=== PATIENT | male | born 1950 | race Caucasian/White ===

== ENCOUNTER 2019-04-14 15:15 | Outpatient (REF) | payer MEDICARE, MEDICAID, SELFPAY ==
[2019-04-14 19:36] LABS: Anion Gap 9.4 mmol/L (3-11); BUN 17 mg/dL (7-18); CO2 27.6 mmol/L (21.0-32.0); CREATININE 0.78 mg/dL (0.70-1.30); Calcium 9.1 mg/dL (8.5-10.1); Chloride 102 mmol/L (98-107); Cholesterol 206 mg/dL (50-200); Glucose 77 mg/dL (70-100); HDL Cholesterol 57 mg/dL (40-60); LDL CHOLESTEROL 136 mg/dL (<100); Potassium 4.1 mmol/L (3.5-5.1); Sodium 139 mmol/L (136-145); Triglyceride 62 mg/dL (30-150)
== END 2019-04-14 15:35 ==
LOC: NCHCN 15:15
PROVIDERS: PCP Internal Medicine; Visit Provider Physician Assistant Medical
DX: I10 Essential (primary) hypertension (principal)
CPT/HCPCS: 80048; 80061; 83721

== ENCOUNTER 2020-10-11 18:22 | Outpatient (REF) | payer MEDICARE, MEDICAID, SELFPAY | END 2020-10-11 18:42 | LOC: NCHCN 18:22 | PROVIDERS: PCP Internal Medicine; Visit Provider Physician Assistant | DX: R30.0 Dysuria (principal) | CPT/HCPCS: 87086 ==

== ENCOUNTER 2020-11-01 16:36 | Outpatient (REF) | payer MEDICARE, MEDICAID, SELFPAY ==
[2020-11-01 19:27] LABS: ALT 24 U/L (16-63); AST 17 U/L (15-37); Albumin 3.8 g/dL (3.4-5.0); Alkaline Phosphatase 69 U/L (46-116); Anion Gap 6.4 mmol/L (3-11); BUN 19 mg/dL (7-18); Bilirubin, Total 0.9 mg/dL (0.2-1.0); CO2 27.6 mmol/L (21.0-32.0); CREATININE 1.12 mg/dL (0.70-1.30); Calcium 8.9 mg/dL (8.5-10.1); Chloride 105 mmol/L (98-107); Glucose 129 mg/dL (74-106); Potassium 4.2 mmol/L (3.5-5.1); Sodium 139 mmol/L (136-145); Total Protein 6.9 g/dL (6.4-8.2)
[2020-11-01 19:30] LABS: Abs Immature Grans 0.01 10^3/uL (0.0-0.06); Absolute Basophil Count 0.02 10^3/uL (0.0-0.2); Absolute Eosinophil Count 0.23 10^3/uL (0.0-0.7); Absolute Lymphocyte Count 1.68 10^3/uL (1.2-3.4); Absolute Monocyte Count 0.45 10^3/uL (0.1-0.8); Basophils % 0.3; Eosinophils % 3.3; HGB 15.9 g/dL (13.5-17.5); Immature Grans % 0.1; Lymphocytes % 24.4; MCH 29.8 pg (27.0-33.0); MCHC 33.1 % (32.0-36.0); MCV 90.1 fL (80-95); MPV 9.4 fL (8.0-11.0); Monocytes % 6.5; Neutrophils % 65.4; Nucleated RBC 0 %; Platelet Count 234 10^3/uL (130-400); RBC 5.33 10^6/uL (4.36-5.78); RDW-SD 42.7 fL; WBC 6.89 10^3/uL (4.4-10.8)
== END 2020-11-01 16:56 ==
LOC: NCHCN 16:36
PROVIDERS: PCP Internal Medicine; Visit Provider Physician Assistant
DX: R93.421 Abnormal radiologic findings on diagnostic imaging of right kidney (principal); R31.9 Hematuria, unspecified
CPT/HCPCS: 80053; 85025

== ENCOUNTER 2020-12-08 12:15 | Outpatient (REF) | payer MEDICARE, MEDICAID, SELFPAY ==
[2020-12-08 16:22] LABS: Bacteria Negative HPF (Negative); C & S Indicated? No; Crystals Negative HPF (Negative); Epithelial Cells Negative HPF (Negative); Mucus Moderate (Negative); RBC 0-2 HPF (0-2); WBC Negative HPF (0-5)
== END 2020-12-08 12:35 ==
LOC: NCHCN 12:15
PROVIDERS: PCP Internal Medicine; Visit Provider Physician Assistant
DX: R31.9 Hematuria, unspecified (principal)
CPT/HCPCS: 81015

== ENCOUNTER 2021-09-11 18:40 | Outpatient (REF) | payer MEDICARE, MEDICAID, SELFPAY | END 2021-09-11 18:41 | disposition home or self-care (01) | LOC: NCHCN 18:40 | PROVIDERS: PCP Internal Medicine; Visit Provider Internal Medicine | DX: N39.0 Urinary tract infection, site not specified (principal); R30.0 Dysuria | CPT/HCPCS: 87077; 87086; 87186 ==

== ENCOUNTER 2022-01-05 15:15 | Outpatient (REF) | payer MEDICARE, MEDICAID, SELFPAY ==
[2022-01-05 19:35] LABS: Anion Gap 8.7 mmol/L (3-11); BUN 20 mg/dL (7-18); CO2 27.3 mmol/L (21.0-32.0); CREATININE 0.9 mg/dL (0.70-1.30); Calcium 8.8 mg/dL (8.5-10.1); Calculated LDL 139 mg/dL (<100); Chloride 103 mmol/L (98-107); Cholesterol 205 mg/dL (<200); Glucose 77 mg/dL (74-106); HDL Cholesterol 53 mg/dL (40-60); Potassium 4.3 mmol/L (3.5-5.1); Sodium 139 mmol/L (136-145); Triglyceride 65 mg/dL (<150)
[2022-01-08 09:59] LABS: PSA, Diagnostic 7.7 ng/mL (0.0-6.5)
== END 2022-01-05 15:16 | disposition home or self-care (01) ==
LOC: NCHCN 15:15
PROVIDERS: PCP Internal Medicine; Visit Provider Physician Assistant
DX: I10 Essential (primary) hypertension (principal); R35.1 Nocturia; N50.89 Other specified disorders of the male genital organs
CPT/HCPCS: 80048; 80061; 84153

== ENCOUNTER → 2022-02-14 12:54 | Outpatient (BNVA) | payer MEDICARE, MEDICAID, SELFPAY | PROVIDERS: PCP Internal Medicine; Referring Provider Internal Medicine; Visit Provider Nurse Practitioner Gerontology | DX: N40.1 Benign prostatic hyperplasia with lower urinary tract symptoms (principal); R35.1 Nocturia; N43.3 Hydrocele, unspecified; N52.9 Male erectile dysfunction, unspecified; R97.20 Elevated prostate specific antigen [PSA] | CPT/HCPCS: 99205 ==

== ENCOUNTER 2022-03-09 17:53 | Outpatient (REF) | payer MEDICARE, MEDICAID, SELFPAY | END 2022-03-09 17:54 | disposition home or self-care (01) | LOC: NCHCN 17:53 | PROVIDERS: PCP Internal Medicine; Visit Provider Physician Assistant | DX: R30.0 Dysuria (principal) | CPT/HCPCS: 87086 ==

== ENCOUNTER 2022-05-10 02:20 | Outpatient (CLI) | payer MEDICARE, MEDICAID, SELFPAY ==
[2022-05-10 22:59] LABS: PSA, Diagnostic 10.4 ng/mL (<=6.5)
== END 2022-05-10 02:21 | disposition home or self-care (01) ==
LOC: LBO 02:20
PROVIDERS: PCP Internal Medicine; Visit Provider Nurse Practitioner Gerontology
DX: R97.20 Elevated prostate specific antigen [PSA] (principal); N43.3 Hydrocele, unspecified; N52.9 Male erectile dysfunction, unspecified
CPT/HCPCS: 36415; 84153

== ENCOUNTER → 2022-05-17 15:43 | Outpatient (BNVA) | payer MEDICARE, MEDICAID, SELFPAY | PROVIDERS: PCP Internal Medicine; Referring Provider Internal Medicine; Visit Provider Nurse Practitioner Gerontology | DX: N40.1 Benign prostatic hyperplasia with lower urinary tract symptoms (principal); R35.1 Nocturia; R97.20 Elevated prostate specific antigen [PSA] | CPT/HCPCS: 99215 ==

== ENCOUNTER 2022-06-07 04:14 | Outpatient (CLI) | payer MEDICARE, MEDICAID, SELFPAY ==
[2022-06-07 10:25] LABS: CREATININE 0.9 mg/dL (0.70-1.30)
== END 2022-06-07 04:15 | disposition home or self-care (01) ==
LOC: LBO 04:14
PROVIDERS: PCP Internal Medicine; Visit Provider Nurse Practitioner Gerontology
DX: R97.20 Elevated prostate specific antigen [PSA] (principal)
CPT/HCPCS: 36415; 82565

== ENCOUNTER → 2022-07-27 10:55 | Outpatient (BNVA) | payer MEDICARE, MEDICAID, SELFPAY | PROVIDERS: PCP Internal Medicine; Referring Provider Internal Medicine; Visit Provider Urology | DX: N50.89 Other specified disorders of the male genital organs (principal); R97.20 Elevated prostate specific antigen [PSA] | CPT/HCPCS: 99214 ==

== ENCOUNTER 2023-01-10 14:53 | Outpatient (REF) | payer MEDICARE, MEDICAID, SELFPAY | END 2023-01-10 14:54 | disposition home or self-care (01) | LOC: LBN 14:53 | PROVIDERS: PCP Internal Medicine; Visit Provider Urology | DX: R97.20 Elevated prostate specific antigen [PSA] (principal) | CPT/HCPCS: 84153 ==

== ENCOUNTER → 2023-01-14 09:55 | Outpatient (BNVA) | payer MEDICARE, MEDICAID, SELFPAY | PROVIDERS: PCP Internal Medicine; Referring Provider Internal Medicine; Visit Provider Nurse Practitioner Gerontology | DX: R97.20 Elevated prostate specific antigen [PSA] (principal) | CPT/HCPCS: 99214 ==

== ENCOUNTER 2023-07-11 18:55 | Outpatient (REF) | payer MEDICARE, MEDICAID, SELFPAY ==
[2023-07-11 19:06] LABS: Bilirubin Negative (Negative); Blood Negative (Negative); Clarity Turbid (Clear); Glucose Negative (Negative); Ketones Negative (Negative); Leukocyte Esterase Negative (Negative); Nitrite Positive (Negative); Specific Gravity >= 1.030 (1.005-1.025); Urobilinogen 0.2 mg/dL (Up to 0.2)
[2023-07-11 20:07] LABS: Bacteria Moderate HPF (Negative); C & S Indicated? Yes; Crystals Mod Calcium Oxalate HPF (Negative); Epithelial Cells Rare HPF (Negative); Mucus Moderate (Negative); RBC Negative HPF (0-2)
[2023-07-12 19:59] LABS: PSA, Diagnostic 9.3 ng/mL (<=6.5)
== END 2023-07-11 18:56 | disposition home or self-care (01) ==
LOC: NCHCN 18:55
PROVIDERS: PCP Internal Medicine; Visit Provider Nurse Practitioner Family
DX: R97.20 Elevated prostate specific antigen [PSA] (principal); R82.998 Other abnormal findings in urine; N39.0 Urinary tract infection, site not specified
CPT/HCPCS: 87077; 81003; 81015; 84153; 87086; 87186

== ENCOUNTER → 2023-07-18 09:56 | Outpatient (BNVA) | payer MEDICARE, MEDICAID, SELFPAY | PROVIDERS: PCP Internal Medicine; Referring Provider Internal Medicine; Visit Provider Nurse Practitioner Gerontology | DX: R97.20 Elevated prostate specific antigen [PSA] (principal); N43.3 Hydrocele, unspecified | CPT/HCPCS: 99213 ==

== ENCOUNTER 2023-12-09 11:32 | Outpatient (REF) | payer MEDICARE, MEDICAID, SELFPAY | END 2023-12-09 11:33 | disposition home or self-care (01) | LOC: NCHCN 11:32 | PROVIDERS: PCP Internal Medicine; Visit Provider Nurse Practitioner Family | DX: R30.0 Dysuria (principal) | CPT/HCPCS: 87077; 87086; 87186 ==

== ENCOUNTER 2024-01-07 11:19 | Outpatient (REF) | payer MEDICARE, MEDICAID, SELFPAY ==
[2024-01-10 15:26] LABS: Free PSA/PSA Ratio 0.19 ratio
== END 2024-01-07 11:20 | disposition home or self-care (01) ==
LOC: NCHCN 11:19
PROVIDERS: PCP Internal Medicine; Visit Provider Physician Assistant
DX: R97.20 Elevated prostate specific antigen [PSA] (principal)
CPT/HCPCS: 84154

== ENCOUNTER → 2024-01-16 09:59 | Outpatient (BNVA) | payer MEDICARE, MEDICAID, SELFPAY | PROVIDERS: PCP Internal Medicine; Referring Provider Internal Medicine; Visit Provider Nurse Practitioner Gerontology | DX: N43.3 Hydrocele, unspecified (principal); R97.20 Elevated prostate specific antigen [PSA] | CPT/HCPCS: 99214 ==

== ENCOUNTER 2024-07-08 18:21 | Outpatient (REF) | payer MEDICARE, MEDICAID, SELFPAY ==
[2024-07-09 21:42] LABS: PSA, Diagnostic 6.6 ng/mL (<=6.5)
== END 2024-07-08 18:22 | disposition home or self-care (01) ==
LOC: NCHCN 18:21
PROVIDERS: PCP Internal Medicine; Visit Provider Physician Assistant
DX: R97.20 Elevated prostate specific antigen [PSA] (principal)
CPT/HCPCS: 84153

== ENCOUNTER → 2024-07-16 10:03 | Outpatient (BNVA) | payer MEDICARE, MEDICAID, SELFPAY | PROVIDERS: PCP Internal Medicine; Referring Provider Internal Medicine; Visit Provider Nurse Practitioner Gerontology | DX: N43.3 Hydrocele, unspecified (principal); R97.20 Elevated prostate specific antigen [PSA] | CPT/HCPCS: 99214 ==

== ENCOUNTER 2025-01-06 20:47 | Outpatient (REF) | payer MEDICARE, MEDICAID, SELFPAY ==
[2025-01-06 20:07] LABS: Anion Gap 3.4 mmol/L (3-11); BUN 26 mg/dL (7-18); CO2 31.6 mmol/L (21.0-32.0); CREATININE 1.1 mg/dL (0.70-1.30); Calcium 9.3 mg/dL (8.5-10.1); Calculated LDL 133 mg/dL (<100); Chloride 103 mmol/L (98-107); Cholesterol 216 mg/dL (<200); Estimated GFR 70.44 (mL/min/1.73m2); Glucose 100 mg/dL (74-106); HDL Cholesterol 47 mg/dL (40-60); Potassium 4.3 mmol/L (3.5-5.1); Sodium 138 mmol/L (136-145); Triglyceride 181 mg/dL (<150)
[2025-01-07 23:01] LABS: PSA, Diagnostic 8.4 ng/mL (<=6.5)
== END 2025-01-06 20:48 | disposition home or self-care (01) ==
LOC: NCHCN 20:47
PROVIDERS: Nurse Practitioner Gerontology; PCP Internal Medicine; Visit Provider Internal Medicine
DX: R97.20 Elevated prostate specific antigen [PSA] (principal); I10 Essential (primary) hypertension
CPT/HCPCS: 80048; 80061; 84153

== ENCOUNTER → 2025-01-12 08:27 | Outpatient (BNVA) | payer MEDICARE, MEDICAID, SELFPAY | PROVIDERS: PCP Internal Medicine; Referring Provider Internal Medicine; Visit Provider Nurse Practitioner Gerontology | DX: N43.3 Hydrocele, unspecified (principal); R97.20 Elevated prostate specific antigen [PSA] | CPT/HCPCS: 99214 ==

== ENCOUNTER 2025-03-09 14:39 | Outpatient (REF) | payer MEDICARE, MEDICAID, SELFPAY ==
[2025-03-09 20:01] LABS: Bilirubin Negative (Negative); Blood Trace-intact (Negative); Clarity Clear (Clear); Glucose Negative (Negative); Ketones Negative (Negative); Leukocyte Esterase Negative (Negative); Nitrite Negative (Negative); Specific Gravity 1.015 (1.005-1.025); Urobilinogen 0.2 mg/dL (Up to 0.2); pH 8.5 (5-8)
[2025-03-09 20:24] LABS: Bacteria Few HPF (Negative); C & S Indicated? No/Sq. Contamination; Casts Negative LPF (Negative); Crystals Negative HPF (Negative); Epithelial Cells Moderate HPF (Negative); Mucus Negative (Negative)
== END 2025-03-09 14:40 | disposition home or self-care (01) ==
LOC: NCHCN 14:39
PROVIDERS: PCP Internal Medicine; Visit Provider Nurse Practitioner Family
DX: R30.0 Dysuria (principal); B96.29 Other Escherichia coli [E. coli] as the cause of diseases classified elsewhere
CPT/HCPCS: 81003; 81015

== ENCOUNTER 2025-03-25 06:05 | Day surgery (SDC) | payer MEDICARE, MEDICAID, SELFPAY ==
[2025-03-25] VITALS (24 sets, daily range): BP systolic 104–169; BP diastolic 61–104; PULSE 55–80; RESP 12–27; TEMP 36–37; O2SAT 90–97; BMI 34.4
--- NOTE | 2025-03-25 06:43 | W.PM.HP.N ---
Date of service: 03/25/25 Time of Service: 06:43 Assessment and Plan Assessment and plan (1) Hydrocele: Status: Acute Assessment and plan: Since only the left side is symptomatic, I will do the left hydrocelectomy. I will also attempt to release the adhesion at the base of his penis. History of Present Illness History of Present Illness Chief Complaint: Bilateral hydroceles Narrative: This is a 74-year-old gentleman who has a history of an elevated PSA. His multiparameter prostate MRI showed very low likelihood of clinically significant prostate cancer, so he has never had a prostate biopsy. He does have a finding of bilateral hydroceles (left larger than the right) the hydroceles have become more bothersome over the years and he presents now for hydrocelectomy. He tells me that only the left side is symptomatic so we will not perform bilateral hydrocelectomy but just left hydrocelectomy. He does have a skin lesion at the base of the penis that causes some tethering when he gets an erection. He is wondering if this area can be excised/revised as well. Review of Systems Narrative: No fevers or chills No vision change or dysphasia No diabetes or thyroid dysfunction No shortness of breath, cough or hemoptysis No chest pain or palpitations No nausea, vomiting, hepatitis, ulcers, jaundice No seizures, strokes or peripheral neuropathy No bleeding disorders or anemia No gout PFSH All Active Problems Hydrocele (Acute) Erectile dysfunction (Acute) Elevated PSA (Acute) Medical History Hx MRSA infection Surgical History Hx of hand surgery Hx of hernia repair Social History Smoking/Tobacco Use Status: Never Smoking risk assessment performed?: Yes Alcohol Intake: current Alcohol Intake frequency: a few times a month Alcohol type: beer Drug use: Never Substance use type: does not use Housing: house Additional Social history: [facility] Meds Allergies and Home Medications Allergies Allergy/AdvReac Type Severity Reaction Status Date / Time sildenafil (From Viagra) Allergy floaters Verified 03/25/25 06:32 Home Medications ?Medication ?Instructions ?Recorded ?Confirmed ?Type torsemide 5 mg tablet 5 mg PO DAILY 01/12/25 03/23/25 History Exam Const General: cooperative Neck Neck: supple Resp Effort & Inspection: normal respiratory effort Auscultation: clear to auscultation bilaterally Cardio Rate: regular rate Rhythm: regular rhythm GI Palpation: soft Neuro General: patient alert, patient awake and patient oriented x3 Extrem General: other (Right hand injury) Results Last Vital Signs Temp 37.0 C 03/25/25 06:26 Pulse 56 L 03/25/25 06:26 Resp 17 03/25/25 06:26 BP 169/104 H 03/25/25 06:26 Pulse Ox 95 03/25/25 06:26 Time Spent Time spent with Patient: <40 minutes Time was spent: other
[2025-03-25] MEDS: Lactated Ringers 1,000 ML 80 ML IV (06:44)
--- NOTE | 2025-03-25 07:18 | W.ANESPRE ---
General Info Date of Service Date Performed: 03/25/25 Height: 5 ft 4 in Weight: 91.2 kg Body Mass Index (BMI): 34.4 Surgical Procedure: Operation Date: 03/25/25 07:40 Proposed Procedure Side Surgeon p Hydrocelectomy Bilateral Suleiman Balbuena MD Actual Procedure Side Surgeon p Hydrocelectomy Bilateral Suleiman Balbuena MD Pre-Op Diagnosis Post-Op Diagnosis Hydrocele Meds Allergies and Home Medications Allergies Allergy/AdvReac Type Severity Reaction Status Date / Time sildenafil (From Viagra) Allergy floaters Verified 03/25/25 06:32 Home Medication ?Medication ?Instructions ?Recorded torsemide 5 mg tablet 5 mg PO DAILY 01/12/25 Current Visit Medications: Current Medications Generic Name Dose Route Start Last Admin Trade Name Freq PRN Reason Stop Dose Admin Ringer's Solution 1,000 mls @ 80 mls/hr 03/25/25 06:00 03/25/25 06:44 IV 03/25/25 23:59 80 mls/hr INFUSION BETH Administration Cefazolin Sodium/Dextrose 2 gm in 50 mls @ 100 mls/hr 03/25/25 06:00 Ancef Duplex IVPB 03/25/25 23:59 PREOP BETH IV Miscellaneous Supplies 1 each 03/25/25 06:00 Iv Access IV 03/25/25 23:59 DIRECTED BETH Sodium Chloride 0 ml 03/25/25 06:00 Normal Saline Flush 10 Ml Syr IV 03/25/25 23:59 PRN PRN Sodium Chloride 0 ml 03/25/25 06:00 Normal Saline 10 Ml Vial IJ 03/25/25 23:59 DIRECTED PRN Sterile Water 0 ml 03/25/25 06:00 Water,Injection,Sterile 10 Ml Vial IJ 03/25/25 23:59 DIRECTED PRN PFSH Active Problems Active Problems: Problem Status Onset Code Hydrocele Acute N43.3 Erectile dysfunction Acute N52.9 Elevated PSA Acute R97.20 Medical History Medical History Hx MRSA infection Surgical History Surgical History Hx of hand surgery Hx of hernia repair Tobacco Smoking/Tobacco Use Status: Never Alcohol Alcohol Intake: current Alcohol intake frequency: a few times a month Alcohol type: beer Substance Use Substance use: Never Substance use type: does not use Vital Signs and Lab Results Vital Signs Most Recent Vital Signs in EMR: Most Recent Vital Signs Temp Pulse Resp BP Pulse Ox 37.0 C 56 L 17 169/104 H 95 03/25/25 06:26 03/25/25 06:26 03/25/25 06:26 03/25/25 06:26 03/25/25 06:26 Lab Results Blood Type / Crossmatch: No Data to Display Complete Blood Count: No Data to Display Complete Metabolic Panel: No Data to Display Liver Function Panel: No Data to Display Coagulation Panel: No Data to Display Cardiac Panel: No Data to Display Arterial Blood Gas: No Data to Display Venous Blood Gas: No Data to Display Pancreas Panel: No Data to Display Thyroid Panel: No Data to Display Infectious Disease: No Data to Display Blood Cultures: No Data to Display Toxicology Panel: No Data to Display Anesthesia Assessment and Plan Anesthesia History Personal History: No History of Anesthesia Complications Family History: No Family History of Anesthesia Complications Exercise Tolerance Exercise Tolerance: Metabolic Equivalents>4 Pertinent Negatives Pertinent Negatives: No Symptoms of GERD Cardiac & Pulmonary Exam Cardiac Exam: Normal S1/S2 Heart Sounds Pulmonary Exam: Clear Bilateral Breath Sounds Implantable Cardiac Device Does patient have a Pacemaker or an ICD?: No Airway Exam Known Difficult Airway: No Mallampati Class: 2 Mouth Opening: Normal (> 3cm) Thyromental Distance: Greater than 3 cm Neck Range of Motion: Full ROM Neck Circumference: Normal Teeth Condition: Normal Dentition ASA Classification ASA Score: ASA 2 Emergency Case?: No NPO Status NPO Status: NPO Clears >2 hours, Solids >8 hours Anesthesia Plan Resuscitation Status: Full Code Anesthesia Technique: General Anesthesia Airway Planned: LMA Monitors Used: Standard Monitors
[2025-03-25] MEDS: ceFAZolin 2 GM/50 ML BAG IVPB (07:30)
[2025-03-25] MEDS: Bupivacaine 0.25% Pres-Free 30 ML VIAL (08:15)
--- NOTE | 2025-03-25 08:40 | W.PM.DSUDISC ---
Date of service: 03/25/25 Discharge Plan Disposition Patient Disposition: Home Condition: Stable Discharge Details Reason For Visit: hydrocelectomy Attending Provider: Suleiman Balbuena Primary Care Provider: Ramesh Meek Home Meds and New Rx's Prescriptions: New tramadol 50 mg tablet 50 mg PO Q6H MDD 4 PRN (Reason: pain) Qty: 30 0RF Rx Instructions: may take along with tylenol and OTC NSAIDS like ibuprofen No Action torsemide 5 mg tablet 5 mg PO DAILY Discharge Instructions Additional Instructions: Wear scrotal support and fluff dressings overnight. In the morning, you can get the dressings wet, remove the dressings and leave the dressings off. We do recommend that you wear tight supportive undergarments to help decrease swelling after the procedure. We will ask you to use ice packs to the scrotum (a bag of frozen peas works well) for 30 minutes on and 30 minutes off just while you are awake. We recommend the ice packs for about 48 hours. Please do not lift anything over 10 pounds (about the weight of a gallon of milk) until we see you back in the office. You will need a follow-up appointment to see us in the office in about 2 weeks. I am sending in a prescription for pain medication for you. You can use the medication in addition to [id number] Tylenol and anti-inflammatory medicines. Stand Alone Forms: Anesthesia Discharge Ace Schulz (DSU) Activity:: No lifting over 10 pounds Remove Dressings/Wound Care:: 24 hours Shower/Bathe:: 24 hours Diet:: As Tolerated Discharge Orders Discharge Orders: Discharge Order (Routine); Ordered 03/25/25 Ordered By: Suleiman Balbuena DS: Diagnosis Discharge Diagnosis (1) Hydrocele: Status: Acute
--- NOTE | 2025-03-25 08:46 | W.PM.OP ---
Operative Note Operative Note PRE-OP DIAGNOSIS: Bilateral hydrocele POST-OP DIAGNOSIS: same penile skin adhesion PROCEDURE: Left hydrocelectomy Excision of penile skin adhesion SURGEON: Suleiman Balbuena HEAD TURBINE OPERATOR: Ivy Johnson ANESTHESIA TYPE: Local By Surgeon and General LMA/ETT Refer to Anesthesia Record ESTIMATED BLOOD LOSS: 20 PATHOLOGY: none sent COMPLICATIONS: None Patient was transported to: PACU Patient's condition: stable Implants: none Indications: This is a 74-year-old gentleman who has a history of bilateral hydroceles. He tells me that only the left side is symptomatic. He presents for left hydrocelectomy He also has an adhesion of the penile skin at the base ventrally. This adhesion causes tethering of the penis when he gets an erection. He is asking if the scar can be removed as well under this anesthetic. He tells me the right hydrocele is not symptomatic and he is not interested in having the right side dealt with today Findings: large left hydrocele with normal appearing testis penile adhesion at penile base ventrally Procedure Description: The patient was given IV antibiotics and brought to the operating room on 03/25/2025. He was placed in the supine position. His genitalia and scrotum were prepped and draped. Physical examination revealed a penile scar at the base ventrally. The scar measured approximately 1 x 0.5 cm in largest dimension. I performed a field block using quarter percent Marcaine and excised the lesion. We then closed the defect vertically along the median raphae using simple interrupted 4-0 Vicryl suture. Skin glue was then applied to the wound. We then turned our attention to the left hemiscrotum. A scrotal field block was performed using quarter percent Marcaine. A transverse incision was made on the scrotal skin and the dartos muscle was divided using the Bovie. This allowed us to come down onto the testis still within the hydrocele sac. We developed the plane between the hydrocele sac and the dartos and we were able to bring the testis through the incision onto the surgical field. There were some dense adhesions to the exterior of the hydrocele sac, so we took these down using sharp and blunt dissection. We then opened the hydrocele sac on the anterior aspect and drained over 400 cc of yellow-tinged fluid. The testis itself appeared normal The redundant sac was excised and the edges of the sac were reapproximated posterior to the testis using a running 3-0 chromic suture. A cord block was then performed using quarter percent Marcaine. The testis was delivered back within the left hemiscrotum and the dartos muscle was reapproximated using a running 3-0 chromic suture. The skin was then closed with a subcuticular 4-0 Vicryl suture. Skin glue was applied to the scrotal incision site followed by a fluff dressing and a scrotal support. The patient tolerated this procedure well with no complications. He was taken to the recovery room in stable condition. Date of Procedure: 03/25/25
--- NOTE | 2025-03-25 09:22 | W.ANESPOSTOP ---
Postoperative Evaluation Date, Time and Location Date Performed: 03/25/25 Time Performed: 09:22 Patient Location: PACU Vital Signs Most Recent Imported Vital Signs: Most Recent Vital Signs Temp Pulse Resp BP Pulse Ox 36.5 C 71 17 160/90 H 91 L 03/25/25 09:18 03/25/25 09:20 03/25/25 09:20 03/25/25 09:16 03/25/25 09:20 Pain Score Most Recent Pain Score: Most Recent Pain Score Pain Level 1 03/25/25 09:18 Assessment Mental Status: Awake (Alert & Oriented to Patient Baseline) Airway and Respiratory Function: Patent airway with normal (patient baseline) respiratory exam Cardiovascular Function: Hemodynamically Stable Hydration Status: Adequately Hydrated Nausea & Vomiting: No Nausea or Vomiting Pain: Pain is tolerable per patient Peripheral Nerve Block: Patient did not receive a nerve block
[2025-03-25] MEDS: traMADol 50 MG TAB PO (09:51)
== END 2025-03-25 10:35 | disposition home or self-care (01) ==
PROVIDERS: PCP Internal Medicine; Visit Provider Urology
PROC: (CPT 55040; principal; 2025-03-25 07:30)
DX: N43.3 Hydrocele, unspecified (principal); N48.89 Other specified disorders of penis
CPT/HCPCS: 55040; J0665; J0690; J1100; J1885; J2003; J2405; J2704

== ENCOUNTER → 2025-03-29 15:01 | Outpatient (BNVA) | payer MEDICARE, MEDICAID, SELFPAY | PROVIDERS: PCP Internal Medicine; Referring Provider Internal Medicine; Visit Provider Urology | DX: N99.842 Postprocedural seroma of a genitourinary system organ or structure following a genitourinary system procedure (principal); Z48.816 Encounter for surgical aftercare following surgery on the genitourinary system | CPT/HCPCS: 99024; 99213 ==

== ENCOUNTER → 2025-04-01 14:40 | Outpatient (BNVA) | payer MEDICARE, MEDICAID, SELFPAY | PROVIDERS: PCP Internal Medicine; Referring Provider Internal Medicine; Visit Provider Urology | DX: N99.840 Postprocedural hematoma of a genitourinary system organ or structure following a genitourinary system procedure; Z48.816 Encounter for surgical aftercare following surgery on the genitourinary system | CPT/HCPCS: 99213 ==

== ENCOUNTER → 2025-04-06 09:04 | Outpatient (BNVA) | payer MEDICARE, MEDICAID, SELFPAY | PROVIDERS: PCP Internal Medicine; Referring Provider Internal Medicine; Visit Provider Nurse Practitioner Gerontology | DX: Z48.816 Encounter for surgical aftercare following surgery on the genitourinary system (principal) | CPT/HCPCS: 99024 ==

== ENCOUNTER → 2025-04-21 08:55 | Outpatient (BNVA) | payer MEDICARE, MEDICAID, SELFPAY | PROVIDERS: PCP Internal Medicine; Referring Provider Internal Medicine; Visit Provider Nurse Practitioner Gerontology | DX: N43.3 Hydrocele, unspecified (principal); Z98.890 Other specified postprocedural states | CPT/HCPCS: 99024 ==

== ENCOUNTER 2025-04-21 09:19 | Outpatient (CLI) | payer MEDICARE, MEDICAID, SELFPAY ==
--- NOTE | 2025-04-21 09:30 | DI.US_ITS ---
Exam(s) US SCROTUM EXAM: US SCROTUM CLINICAL HISTORY: continued swelling 1 month post-op, hydrocele, N43.3. TECHNIQUE: Scrotal ultrasound performed using grayscale, color-flow and spectral Doppler analysis. COMPARISON: US US SCROTUM AND CONTENTS from 02/01/2022 FINDINGS: Right testicle: 5.2 x 2.9 x 3.0 cm Echogenicity: Normal. Contour: Smooth. Mass: None seen. Microlithiasis: None. Hydrocele: There is a 6.0 x 3.0 x 5.3 cm right hydrocele. Variocele: None. Hernia: No peristalsing bowel loop identified. Epididymis: There is a 4 mm epididymal head cyst. Left testicle: 3.3 x 3.6 x 3.1 cm Echogenicity: Normal. Contour: Smooth. Mass: None seen. Microlithiasis: None. Hydrocele: There is a large hydrocele measuring 9.1 x 7.8 x 8.5 cm. There is debris seen within the hydrocele. Variocele: None. Hernia: No peristalsing bowel loop identified. Epididymis: The left epididymis is heterogeneous with mild increased blood flow. There is mildly thic kened compared to the right epididymis. Epididymitis is suspected. DOPPLER: Color: Symmetric and uniform, no hyperemia. IMPRESSION: 1. Heterogeneous left epididymis with mild increased blood flow concerning for epididymitis. 2. Large left hydrocele with debris seen within the hydrocele. This may represent hemorrhage or infec tion. 3. Large right hydrocele. DATA REPOSITORY:
== END 2025-04-21 09:39 ==
LOC: DI 09:19
PROVIDERS: PCP Internal Medicine; Visit Provider Nurse Practitioner Gerontology
DX: N43.3 Hydrocele, unspecified (principal)
CPT/HCPCS: 76870

== ENCOUNTER → 2025-07-12 09:53 | Outpatient (BNVA) | payer MEDICARE, MEDICAID, SELFPAY | PROVIDERS: PCP Internal Medicine; Referring Provider Internal Medicine; Visit Provider Nurse Practitioner Gerontology | DX: N43.3 Hydrocele, unspecified (principal); R97.20 Elevated prostate specific antigen [PSA] | CPT/HCPCS: 99214 ==

== ENCOUNTER 2025-07-12 12:12 | Outpatient (CLI) | payer MEDICARE, MEDICAID, SELFPAY ==
[2025-07-12 19:10] LABS: PSA, Diagnostic 8.0 ng/mL (<=6.5)
== END 2025-07-12 12:13 | disposition home or self-care (01) ==
LOC: LBO 12:13
PROVIDERS: PCP Internal Medicine; Visit Provider Nurse Practitioner Gerontology
DX: R97.20 Elevated prostate specific antigen [PSA] (principal)
CPT/HCPCS: 36415; 99214; 84153